=== PATIENT | male | born 1965 | race Caucasian/White ===

== ENCOUNTER 2021-02-19 12:24 | Emergency (ER) | payer OTHER ==
[2021-02-19 13:01] VITALS: BP 147/89; PULSE 90; TEMP 97.4; BMI 35.6
[2021-02-19] MEDS ORDERED: KETOROLAC TROMETHAMINE 15 MG/ML VIAL IM ONE (14:16)
[2021-02-19] MEDS ORDERED: KETOROLAC TROMETHAMINE 15 MG/ML VIAL ONE (14:19)
[2021-02-19] MEDS ORDERED: LIDOCAINE 5% TOPICAL PATCH TP ONE (14:35)
[2021-02-19] MEDS ORDERED: LIDOCAINE 5% TOPICAL PATCH ONE (14:39)
[2021-02-19] MEDS ORDERED: LIDOCAINE PATCH REMOVAL MC ONE (22:00)
== END 2021-02-19 15:45 | disposition home or self-care (01) ==
LOC: JERFT 12:24
PROC: 3E0233Z Introduction of Anti-inflammatory into Muscle, Percutaneous Approach (ICD-10-PCS; principal; 2021-02-19)
DX: M54.9 Dorsalgia, unspecified (principal)
CPT/HCPCS: 72100-TC-FY; 99284-25

== ENCOUNTER 2021-08-02 04:26 | Day surgery (SDC) | payer BC, OTHER ==
[2021-07-28 17:49] VITALS: BMI 34.9
[2021-08-02] MEDS ORDERED: PROPOFOL 20 ML ONE (12:45)
[2021-08-02] MEDS ORDERED: MIDAZOLAM HCL 2 MG/2 ML SINGLE DOSE VIAL ONE (12:45)
[2021-08-02] MEDS ORDERED: KETOROLAC TROMETHAMINE 30 MG/1 ML VIAL ONE (12:57)
[2021-08-02 14:31] VITALS: BP 108/77; PULSE 66; TEMP 97.7
== END 2021-08-02 14:44 | disposition home or self-care (01) ==
LOC: JASU-SURG 04:26
PROVIDERS: ATTEND Urology
PROC: 0TF4XZZ Fragmentation in Left Kidney Pelvis, External Approach (ICD-10-PCS; principal; 2021-08-02 12:00)
DX: N20.0 Calculus of kidney (principal)

== ENCOUNTER 2021-08-17 04:10 | Day surgery (SDC) | payer BC ==
[2021-08-13 13:52] VITALS: BMI 34.9
[2021-08-17] MEDS ORDERED: MIDAZOLAM HCL 2 MG/2 ML SINGLE DOSE VIAL ONE (11:15)
[2021-08-17] MEDS ORDERED: ACETAMINOPHEN 325 MG TABLET (FP) PO PRN (11:33)
[2021-08-17] MEDS ORDERED: oxyCODONE HCL 5 MG TABLET PO PRN (11:33)
[2021-08-17] MEDS ORDERED: ONDANSETRON 4 MG/2 ML VIAL IVPUSH PRN (11:33)
[2021-08-17] MEDS ORDERED: LACTATED RINGERS SOLUTION 1,000 ML IV SCH (11:45)
[2021-08-17 13:08] VITALS: BP 116/78; PULSE 66; TEMP 97.8
== END 2021-08-17 13:05 | disposition home or self-care (01) ==
LOC: JASU-SURG 04:10
PROVIDERS: ATTEND Urology
PROC: 0TF3XZZ Fragmentation in Right Kidney Pelvis, External Approach (ICD-10-PCS; principal; 2021-08-17 11:30)
DX: N20.0 Calculus of kidney (principal)